=== PATIENT | male | born 1985 | race African-American/Black ===

== ENCOUNTER 2018-11-29 17:27 | Emergency (ER) | payer MEDICAID, OTHER ==
[~2018-11-29] VITALS: Ht 180.3 cm; Wt 100.0 kg
[2018-11-29] MEDS ORDERED: KETOROLAC 30MG/ML VIAL IM ONE (18:15)
[2018-11-29] MEDS ORDERED: METHOCARBAMOL 500MG TABLET PO ONE (18:15)
[2018-11-29 20:23] VITALS: BP 135/72
== END 2018-11-29 20:24 | disposition home or self-care (01) ==
LOC: ER 17:27
DX: S10.93XA Contusion of unspecified part of neck, initial encounter (principal); R51 Headache; V89.2XXA Person injured in unspecified motor-vehicle accident, traffic, initial encounter; Y93.89 Activity, other specified; Y92.89 Other specified places as the place of occurrence of the external cause; Y99.8 Other external cause status
CPT/HCPCS: 70450; 72125; 96372; 99284; J1885

== ENCOUNTER 2019-07-22 23:49 | Emergency (ER) | payer SELFPAY ==
[~2019-07-22] VITALS: Ht 177.8 cm; Wt 85.7 kg
[2019-07-23] MEDS ORDERED: SODIUM CHLORIDE 0.9% 1,000 ML IV ONE (01:19)
[2019-07-23 01:42] LABS: EOSINOPHILS % 5.4 % (0.0-5.0); HEMATOCRIT. 44.7 % (42.0-52.0); HEMOGLOBIN. 14.9 g/dL (14.0-18.0); LYMPHOCYTES % 35.1 % (20.0-50.0); MEAN CORPUSCULAR HEMOGLOBIN 27.7 pg (28.0-32.0); MEAN CORPUSCULAR VOLUME 83.3 fL (80.0-94.0); MEAN PLATELET VOLUME 8.3 fl (7.4-10.4); MONOCYTES % 10.7 % (2.0-8.0); NEUTROPHILS % 47.8 % (40.0-76.0); PLATELET 242 x1000/uL (130-400); RED BLOOD CELL COUNT 5.37 mill/uL (4.7-6.1); RED CELL DISTRIBUTION WIDTH 13.7 % (11.6-14.6)
[2019-07-23 01:45] LABS: CHLORIDE 106 mEq/L (98-107)
[2019-07-23 03:00] VITALS: BP 110/44
== END 2019-07-23 03:54 | disposition home or self-care (01) ==
LOC: ER 23:49
DX: J20.9 Acute bronchitis, unspecified (principal)
CPT/HCPCS: 36415; 71045; 80053; 85025; 93005; 96360; 99285; J7030

== ENCOUNTER 2020-01-29 22:37 | Emergency (ER) | payer MEDICAID ==
[~2020-01-29] VITALS: Ht 177.8 cm; Wt 83.6 kg
[2020-01-30] MEDS ORDERED: KETOROLAC 30MG/ML VIAL IM ONE (01:00)
[2020-01-30] MEDS ORDERED: TRAMADOL 50MG TABLET PO ONE (01:00)
[2020-01-30 01:29] VITALS: BP 121/76
== END 2020-01-30 03:35 | disposition home or self-care (01) ==
LOC: ER 22:37
DX: M54.2 Cervicalgia (principal); G89.29 Other chronic pain
CPT/HCPCS: 96372; 99283; J1885

== ENCOUNTER 2020-09-05 00:35 | Emergency (ER) | payer SELFPAY ==
[~2020-09-05] VITALS: Ht 180.3 cm; Wt 96.0 kg
[2020-09-05] MEDS ORDERED: DICYCLOMINE 10 MG/5 ML ORAL SYR PO STA (01:36)
[2020-09-05 01:55] LABS: BASOPHILS % 0.6 % (0.0-2.0); EOSINOPHILS % 4.1 % (0.0-5.0); HEMATOCRIT. 45.3 % (42.0-52.0); HEMOGLOBIN. 14.8 g/dL (14.0-18.0); LYMPHOCYTES % 39.1 % (20.0-50.0); MEAN CORPUSCULAR HEMOGLOBIN 27.5 pg (28.0-32.0); MEAN CORPUSCULAR VOLUME 84.2 fL (80.0-94.0); MEAN PLATELET VOLUME 8.7 fl (7.4-10.4); MONOCYTES % 6.6 % (2.0-8.0); NEUTROPHILS % 49.6 % (40.0-76.0); PLATELET 219 x1000/uL (130-400); RED BLOOD CELL COUNT 5.38 mill/uL (4.7-6.1); RED CELL DISTRIBUTION WIDTH 13.1 % (11.6-14.6)
[2020-09-05 02:01] LABS: CLARITY URINE CLEAR (CLEAR); COLOR URINE YELLOW (YELLOW); KETONES URINE TRACE (NEGATIVE); LEUKOCYTE ESTERASE URINE NEGATIVE (NEGATIVE); NITRITE URINE NEGATIVE (NEGATIVE); OCCULT BLOOD URINE NEGATIVE (NEGATIVE); PROTEIN URINE NEGATIVE (NEGATIVE); SPECIFIC GRAVITY URINE 1.027 (1.005-1.030); UROBILINOGEN URINE 0.2 E.U./dL (0.2-1.0)
[2020-09-05 02:03] LABS: CHLORIDE 107 mEq/L (98-107)
[2020-09-05 03:00] VITALS: BP 111/68
== END 2020-09-05 03:19 | disposition home or self-care (01) ==
LOC: ER 00:56
DX: R19.7 Diarrhea, unspecified (principal); Z20.822 Contact with and (suspected) exposure to COVID-19
CPT/HCPCS: 36415; 80053; 81003; 83690; 85025; 99283; C9803; U0003; U0005

== ENCOUNTER 2020-09-11 15:45 | Emergency (ER) | payer SELFPAY ==
[~2020-09-11] VITALS: Ht 180.3 cm; Wt 95.0 kg
[2020-09-11 15:50] VITALS: BP 114/70
== END 2020-09-11 17:12 | disposition home or self-care (01) ==
LOC: ER 15:45
DX: Z04.89 Encounter for examination and observation for other specified reasons (principal)
CPT/HCPCS: 99283

== ENCOUNTER 2021-07-29 18:52 | Emergency (ER) | payer MEDICAID ==
[~2021-07-29] VITALS: Ht 177.8 cm; Wt 91.0 kg
[2021-07-29 18:57] VITALS: BP 138/66
[2021-07-29] MEDS ORDERED: ONDA4TAB5 MT (20:32)
== END 2021-07-29 21:00 | disposition home or self-care (01) ==
LOC: ER 18:52
DX: R10.9 Unspecified abdominal pain (principal); Z98.890 Other specified postprocedural states
CPT/HCPCS: 99283